=== PATIENT | female | born 1965 | race African-American/Black ===

== ENCOUNTER → 2018-02-02 | Day surgery (SDC) | payer OTHER ==
--- NOTE | 2018-02-02 13:09 | OP ---
DATE OF OPERATION: 02/02/2018 PREOPERATIVE DIAGNOSIS: Abnormal right mammography. POSTOPERATIVE DIAGNOSIS: Abnormal right mammography. PROCEDURE PERFORMED: Right stereotactic needle biopsy with clips. SURGEON: Lucy Lanza MD ANESTHESIA: Local. COMPLICATIONS: None. DISPOSITION: Stable at the end of the procedure. INDICATIONS FOR PROCEDURE: The patient underwent a routine screening mammography that noted a cluster microcalcifications in the lower inner, slightly posterior right breast. The recommendation was needle biopsy. The procedure was discussed with her. All of her questions were answered. DESCRIPTION OF PROCEDURE: The patient was brought to [facility] [place], and taken into the stereo room, where she was placed on the [place] table. Using the medial approach, the calcifications in the lower inner right breast were identified. A sterile prep was obtained. A target was chosen. There was a positive stroke margin. Using Betadine and 1% lidocaine, a 10-gauge Suros device was used to take several cores from this area. The cores showed calcification within them. These were handled with the usual calcification protocol. A clip was deployed in the area. Hemostasis was assured with direct pressure. The incision was covered with Steri-Strips. She tolerated the procedure well and left the breast imaging center in good condition. LUCY LANZA M.D. [id number]
--- NOTE | 2018-02-03 12:37 | PATH ---
Surgical Pathology Report Patient Name: BOOGIE GENAO [facility]. Rec. #: [id number] /Age/Gender: 1965 (Age: 52) / F Account: [id number] Location: [facility] Taken: 02/02/2018 Received: 02/02/2018 Reported: 02/03/2018 Physicians: Lucy Raza M.D. Specimen(s) Received A: RIGHT BREAST SPECIMEN WITH CALCIFICATIONS B: RIGHT BREAST SPECIMEN WITHOUT CALCIFICATIONS Clinical History Non-palpable lesion Mammographic findings: Suspicious microcalcifications Final Diagnosis A. BREAST, RIGHT, WITH CALCIFICATIONS, STEREOTACTIC BIOPSY: BENIGN BREAST TISSUE SHOWING FIBROCYSTIC CHANGES INCLUDING CYSTIC APOCRINE METAPLASIA AND USUAL DUCTAL HYPERPLASIA (UDH) WITH CALCIFICATIONS IN ASSOCIATION WITH CYST CONTENTS. B. BREAST, RIGHT, WITHOUT CALCIFICATIONS, STEREOTACTIC BIOPSY: BENIGN BREAST TISSUE SHOWING FIBROCYSTIC CHANGES INCLUDING CYSTIC APOCRINE METAPLASIA AND USUAL DUCTAL HYPERPLASIA (UDH) WITH ASSOCIATED CALCIFICATIONS. Electronically Signed Amrita Pitts M.D. Gross Description A. Received in formalin labeled "right breast specimen with calcifications" are multiple cores [place] to yellow cylindrical portions of fibroadipose tissue ranging from 0.5 to 2.8 cm in length and averaging 0.2 cm in diameter. The specimen is entirely submitted in 2 cassettes. B. Received in formalin labeled "right breast specimen without calcifications" are multiple cores [place] to yellow cylindrical portions of fibroadipose tissue ranging from 0.5cm to 2.5 cm in length and averaging 0.2 cm in diameter. The specimen is entirely submitted in 2 cassettes. Time to formalin fixation: 5 minutes Total formalin fixation time: 9 to 10 hours MOSES/02/02/2018 derek/02/02/2018
== END | disposition home or self-care (01) ==
LOC: FMAMMOTONE 11:06
PROVIDERS: ATTEND Surgery
PROC: 0HBT3ZX Excision of Right Breast, Percutaneous Approach, Diagnostic (ICD-10-PCS; principal; 2018-02-02)
DX: N60.11 Diffuse cystic mastopathy of right breast (principal); N60.81 Other benign mammary dysplasias of right breast; N64.89 Other specified disorders of breast; R92.8 Other abnormal and inconclusive findings on diagnostic imaging of breast
CPT/HCPCS: 19081; 87899; 88305-TC; A4648